=== PATIENT | female | born 1945 | race African-American/Black ===

== ENCOUNTER → 2017-01-20 | Outpatient (RCR) | payer OTHER ==
[~2017-01-20] MED LIST: AMBIEN10 MG PO; CALCIUM 500 ORAL; CELEBREX200 MG PO; DIOVAN80 MG PO; FOLIC ACID1 MG PO; GLUCOPHAGE500 MG PO; HYDROCHLOROTHIA25 MG PO; IBUPROFEN600 MG ORAL; METHOTREXATE2.5 MG PO; NORCO 5-325 TA1 EACH ORAL; PROTONIX40 MG PO; SIMVASTATIN10 MG PO; VICODIN 5-5001 EACH PO
== END | disposition home or self-care (01) ==
LOC: PTY 11:00
DX: M48.06 Spinal stenosis, lumbar region (principal)

== ENCOUNTER 2017-01-25 13:25 | Outpatient (RCR) | payer OTHER | END 2017-02-19 | disposition home or self-care (01) | LOC: PTY 13:25 | DX: M48.06 Spinal stenosis, lumbar region (principal) | CPT/HCPCS: 97110; 97140; G0283 ==

== ENCOUNTER 2017-03-01 11:00 | Outpatient (RCR) | payer OTHER | END 2017-03-22 | disposition home or self-care (01) | LOC: PTY 11:00 | DX: M48.06 Spinal stenosis, lumbar region (principal) ==

== ENCOUNTER 2017-04-02 10:50 | Outpatient (RCR) | payer OTHER | END 2017-04-22 | disposition home or self-care (01) | LOC: PTY 10:50 | DX: M48.06 Spinal stenosis, lumbar region (principal) ==

== ENCOUNTER 2017-09-06 10:00 | Outpatient (RCR) | payer OTHER | END 2017-09-22 | disposition home or self-care (01) | LOC: PTY 10:00 | DX: M70.61 Trochanteric bursitis, right hip (principal) ==

== ENCOUNTER 2017-09-28 15:45 | Outpatient (RCR) | payer OTHER | END 2017-10-20 | disposition home or self-care (01) | LOC: PTY 15:45 | DX: M70.61 Trochanteric bursitis, right hip (principal) ==

== ENCOUNTER 2017-10-25 10:40 | Outpatient (RCR) | payer OTHER | END 2017-11-20 | disposition home or self-care (01) | LOC: PTY 10:40 | DX: M70.61 Trochanteric bursitis, right hip (principal) ==

== ENCOUNTER 2017-12-01 07:50 | Outpatient (RCR) | payer OTHER | END 2017-12-20 | disposition home or self-care (01) | LOC: PTY 07:50 | DX: M70.61 Trochanteric bursitis, right hip (principal); M06.9 Rheumatoid arthritis, unspecified; E11.9 Type 2 diabetes mellitus without complications ==

== ENCOUNTER 2017-12-22 09:57 | Outpatient (RCR) | payer OTHER | END 2018-01-20 | disposition home or self-care (01) | LOC: PTY 09:57 | DX: M70.61 Trochanteric bursitis, right hip (principal) ==

== ENCOUNTER 2018-03-16 08:22 | Emergency (ER) | payer OTHER ==
[~2018-03-16] VITALS: Ht 149.9 cm; Wt 74.4 kg
--- NOTE | 2018-03-16 08:56 | Emergency Room Report ---
History of Present Illness General Chief Complaint: Lower Back Pain or Injury Source: Patient Present Illness HPI 72-year-old female with history of spinal stenosis, sciatica, RA, and hypertension presents with low back pain, sharp, intense, radiating down her left lower extremity, and reports paresthesias in her left anterolateral thigh region as well. She denies urinary symptoms denies traumatic injuries, she reports she's had similar pain in the past before. She denies calf pain, CP, SOB, cough, hemoptysis, syncope, urinary symptoms, weakness, bowel or bladder incontinence, saddle area anesthesia, trauma/falls, and reports she is on prednisone, flexeril, and hydrocodone, but hasn't had much relief. She just went to a chiropractor 2 days ago, had massage therapy and a TENS unit applied for relief but isn't getting much improvement. She thinks she may have pulled a muscle while lifting some luggage but is uncertain. Allergies: Coded Allergies: CEPHALEXIN (Verified Allergy, Unknown, 01/20/17) Uncoded Allergies: KEFLEX (Allergy, Severe, Anaphylaxis, 10/03/12) Patient History Past Medical History: see triage record Last Menstrual Period: NA Reviewed Nursing Documentation: PMH: Agreed; PSxH: Agreed Nursing Documentation-PMH Past Medical History: No History, Except For Hx Cardiac Problems: No - Rheumatoid arthritis Hx Hypertension: Yes Hx Diabetes: Yes Hx Cancer: No Hx Gastrointestinal Problems: No Hx Neurological Problems: No Review of Systems All Other Systems: negative except mentioned in HPI Physical Exam Vital Signs Date Time Temp Pulse Resp B/P (MAP) Pulse Ox O2 Delivery O2 Flow Rate FiO2 03/16/18 08:24 98.1 100 20 172/86 97 Room Air 98.1 Sp02 EP Interpretation: reviewed, normal General Appearance: no apparent distress, alert, non-toxic Head: normocephalic Eyes: bilateral eye normal inspection, bilateral eye PERRL, bilateral eye EOMI ENT: normal ENT inspection, hearing grossly normal, normal pharynx, no angioedema, normal voice, moist mucus membranes Neck: normal inspection, full range of motion, supple, supple/symm/no masses Respiratory: chest non-tender, lungs clear, normal breath sounds, chest symmetrical, palpation of chest normal Cardiovascular #1: normal peripheral pulses, regular rate, rhythm Cardiovascular #2: 2+ radial (R), 2+ radial (L), 2+ dorsalis pedis (R), 2+ dorsalis pedis (L) Gastrointestinal: normal inspection, non tender, soft, no mass, no guarding, no rebound Rectal: deferred Genitourinary: normal inspection, no CVA tenderness Musculoskeletal: back normal, gait/station normal, normal range of motion, non- tender, no calf tenderness, Leanna's Sign negative Neurologic: alert, responsive, 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, motor strength/tone normal, SLR negative - + in LLE, sensory intact, normal gait - slighlty antalgic with patient fovoring the R due to pain in L low back, speech normal Psychiatric: judgement/insight normal, memory normal, mood/affect normal Skin: normal color, no rash, warm/dry, normal turgor Lymphatic: no adenopathy Medical Decision Making Diagnostic Impression: Primary Impression: Low back pain ER Course Patient with signs and symptoms consistent with sciatica versus low back strain , will discharge his x-rays and been unremarkable and patient had good response to Toradol, Flexeril, Lortab, will give prescription for Flexeril refill as well as ibuprofen and gabapentin. Chest X-Ray Diagnostic Results Chest X-Ray Diagnostic Results : Chest X-Ray Ordered: No Other X-Ray Diagnostic Results Other X-Ray Diagnostic Results #1: X-Ray ordered: R hip # of Views/Limited Vs Complete: 3 View Indication: Pain EP Interpretation: Yes Interpretation: no dislocation, no soft tissue swelling, no fractures, nonspecific bowel gas Impression: No acute disease Electronically Signed by: Jason Lewis MD Other X-Ray Diagnostic Results #2: X-Ray ordered: Lumbar spine # of Views/Limited Vs Complete: 2 View Indication: Pain EP Interpretation: Yes Interpretation: no dislocation, no soft tissue swelling, no fractures, nonspecific bowel gas Impression: No acute disease Electronically Signed by: Jason Lewis MD Last Vital Signs Date Time Temp Pulse Resp B/P (MAP) Pulse Ox O2 Delivery O2 Flow Rate FiO2 03/16/18 08:24 98.1 100 20 172/86 97 Room Air 98.1 Disposition: HOME, SELF-CARE Condition: Stable Scripts Ibuprofen* (MOTRIN*) 600 Mg Tablet 600 MG ORAL Q8H PRN for For Pain, #10 TAB 0 Refills Prov: JASON LEWIS M.D 03/16/18 Cyclobenzaprine Hcl* (FLEXERIL*) 10 Mg Tablet 10 MG ORAL THREE TIMES A DAY, #10 TAB Prov: JASON LEWIS M.D 03/16/18 Gabapentin (Neurontin) 300 Mg Capsule 300 MG ORAL THREE TIMES A DAY, #15 CAP 0 Refills Prov: JASON LEWIS M.D 03/16/18 JASON LEWIS M.D Mar 16, 2018 08:56
[2018-03-16] MEDS ORDERED: Ketorolac 60mg Inj IM ONE ×2 (08:57→09:00)
[2018-03-16] MEDS ORDERED: Cyclobenzaprine 10mg Tab ORAL ONE (08:57)
[2018-03-16] MEDS ORDERED: Norco 5mg/325mg tab ORAL ONE (09:00)
[2018-03-16 09:55] VITALS: BP 170/88
[2018-03-16] MEDS ORDERED: IBUPROFEN600 MG ORAL (10:02)
[2018-03-16] MEDS ORDERED: CYCLOBENZAPRINE10 MG ORAL (10:02)
[2018-03-16] MEDS ORDERED: NEURONTIN300 MG ORAL (10:02)
[2018-03-16 10:11] VITALS: BP 170/88
--- NOTE | 2018-03-16 11:03 | Diagnostic Imaging Report ---
Indication: Pain Technique: 3 views of the lumbar spine Comparison: None Findings: There is anterior offset of L4 on L5, without definite pars defect. There is also minimal upper lumbar scoliotic deformity, which could be an artifact of positioning The remainder of the bony alignment is normal. Vertebral body heights are preserved. The disc spaces are preserved. No acute fractures. No dislocations. The bones are osteoporotic There are aortic calcifications. There are also calcifications projected in the region of the right renal sinus. Surgical rebeca are seen in the left inguinal region. Impression: Alignment abnormality at L4-5, probably due to facet degeneration No definite acute process Osteoporotic change Extraspinal findings as described
--- NOTE | 2018-03-16 11:04 | Diagnostic Imaging Report ---
Indication: Left hip pain Technique: 2 views of the left hip Comparison: none Findings: No acute fractures. No dislocations. Joint spaces are preserved. Surgical rebeca are seen in the left inguinal region. There are degenerative changes of the pubic symphysis Impression: No acute process Note, however, that in elderly osteoporotic patients, undisplaced hip and pelvic fractures can easily be occult. Consider cross-sectional imaging for further evaluation if there is high clinical suspicion
== END 2018-03-16 10:13 | disposition home or self-care (01) ==
LOC: EMR 08:52
DX: M54.5 Low back pain (principal); I10 Essential (primary) hypertension; E11.9 Type 2 diabetes mellitus without complications; M06.9 Rheumatoid arthritis, unspecified; Z88.1 Allergy status to other antibiotic agents
CPT/HCPCS: 72020; 73502; 96372; 99284

== ENCOUNTER 2018-03-19 12:43 | Inpatient (IN) | payer OTHER ==
[~2018-03-19] VITALS: Ht 142.2 cm; Wt 72.6 kg
[~2018-03-19 12:43] MED LIST changes: +CYCLOBENZAPRINE10 MG ORAL; +NEURONTIN300 MG ORAL
[2018-03-19 12:51] VITALS: BP_SYST 166; BP_SYST 192; BP_DIAS 80; BP_DIAS 85
[2018-03-19] MEDS ORDERED: Methocarbamol 750mg tab ORAL ONE (13:15)
[2018-03-19] MEDS ORDERED: Morphine Sulfate 4mg/ml Inj (IV USE ONLY) IVP ONE ×2 (13:15→16:15)
[2018-03-19] MEDS ORDERED: Ketorolac 30mg Inj IV ONE (13:15)
[2018-03-19 13:34] LABS: EOSINOPHILS % (AUTO) 0.1 % (0.0-3.0); HEMATOCRIT 38.8 % (37.0-47.0); HEMOGLOBIN 12.7 G/DL (12.0-16.0); LYMPHOCYTES % (AUTO) 19.2 % (20.0-45.0); MEAN CORPUSCULAR VOLUME 81 FL (80-99); MONOCYTES % (AUTO) 2.2 % (1.0-10.0); NEUTROPHILS % (AUTO) 77.5 % (45.0-75.0); PLATELET COUNT 305 K/UL (150-450); RED BLOOD COUNT 4.76 M/UL (4.20-5.40); RED CELL DISTRIBUTION WIDTH 14.5 % (11.6-14.8); WHITE BLOOD COUNT 10.2 K/UL (4.8-10.8)
[2018-03-19 13:38] LABS: APPEARANCE,URINE CLEAR; BILIRUBIN, URINE NEGATIVE (NEGATIVE); COLOR,URINE PALE YELLOW; GLUCOSE, URINE (UA) NEGATIVE (NEGATIVE); KETONES,URINE NEGATIVE (NEGATIVE); LEUKOCYTE ESTERASE ,URINE 2+ (NEGATIVE); NITRITE,URINE NEGATIVE (NEGATIVE); PH,URINE 8 (4.5-8.0); PROTEIN,URINE NEGATIVE (NEGATIVE); UROBILINOGEN,URINE NORMAL MG/DL (0.0-1.0)
[2018-03-19 13:51] LABS: ANION GAP 16 mmol/L (5-15); BLOOD UREA NITROGEN 21 mg/dL (7-18); CARBON DIOXIDE 22 MMOL/L (21-32); CHLORIDE 99 MMOL/L (98-107); POTASSIUM 3.9 MMOL/L (3.5-5.1); SODIUM 137 MMOL/L (136-145)
[2018-03-19 13:55] LABS: ALANINE AMINOTRANSFERASE 22 U/L (12-78); ALBUMIN 3.4 G/DL (3.4-5.0); ALBUMIN/GLOBULIN RATIO 0.7 (1.0-2.7); ALKALINE PHOSPHATASE 72 U/L (46-116); ASPARTATE AMINO TRANSFERASE 15 U/L (15-37); BILIRUBIN,TOTAL 0.3 MG/DL (0.2-1.0)
--- NOTE | 2018-03-19 14:33 | Emergency Room Report ---
History of Present Illness General Chief Complaint: Back Pain-No Injury Source: Patient, EMS (Samuel Roper MD) Present Illness HPI 72-year-old female presents ED complaining of back pain. Patient brought in by EMS. States that she's been having persistent back pain for the last week. 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 Patient states she has been to urgent care and ER several times for this pain since it started. States that medications work temporarily and then the pain comes back. History of spinal stenosis. Pain is sharp, 10 out of 10, radiating down the left leg. Denies any bowel or bladder incontinence. Denies fevers or chills. No other aggravating relieving factors. Denies any other associated symptoms (Samuel Roper MD) Allergies: Coded Allergies: CEPHALEXIN (Verified Allergy, Unknown, 01/20/17) Uncoded Allergies: KEFLEX (Allergy, Severe, Anaphylaxis, 10/03/12) Patient History Past Medical History: DM, HTN Past Surgical History: none Pertinent Family History: none Social History: Denies: smoking, alcohol use, drug use Last Menstrual Period: none Now: No : 2 Para: 2 Immunizations: UTD Reviewed Nursing Documentation: PMH: Agreed; PSxH: Agreed (Samuel Roper MD) Nursing Documentation-PMH Hx Cardiac Problems: No - Rheumatoid arthritis Hx Hypertension: Yes Hx Diabetes: Yes Hx Cancer: No Hx Gastrointestinal Problems: No Hx Neurological Problems: No (Samuel Roper MD) Review of Systems All Other Systems: negative except mentioned in HPI (Samuel Roper MD) Physical Exam Vital Signs Date Time Temp Pulse Resp B/P (MAP) Pulse Ox O2 Delivery O2 Flow Rate FiO2 03/19/18 12:38 98.6 97 18 151/84 99 Room Air 98.6 Sp02 EP Interpretation: reviewed, normal General Appearance: no apparent distress, alert, GCS 15, non-toxic Head: normocephalic, atraumatic Eyes: bilateral eye normal inspection, bilateral eye PERRL ENT: hearing grossly normal, normal pharynx, no angioedema, normal voice Neck: full range of motion, supple/symm/no masses Respiratory: chest non-tender, lungs clear, normal breath sounds, speaking full sentences Cardiovascular #1: regular rate, rhythm, no edema Cardiovascular #2: 2+ carotid (R), 2+ carotid (L), 2+ radial (R), 2+ radial (L) , 2+ dorsalis pedis (R), 2+ dorsalis pedis (L) Gastrointestinal: normal bowel sounds, non tender, soft, non-distended, no guarding, no rebound Rectal: deferred Genitourinary: normal inspection, no CVA tenderness, no vertebral tenderness Musculoskeletal: back normal, gait/station normal, normal range of motion, other - paraspinal lumbar tenderness Neurologic: alert, oriented x3, responsive, motor strength/tone normal, sensory intact, speech normal Psychiatric: judgement/insight normal, memory normal, mood/affect normal, no suicidal/homicidal ideation Reflexes: 3+ bicep (R), 3+ bicep (L), 3+ tricep (R), 3+ tricep (L), 3+ knee (R) , 3+ knee (L) Skin: normal color, no rash, warm/dry, well hydrated Lymphatic: no adenopathy (Samuel Roper MD) Medical Decision Making Diagnostic Impression: Primary Impression: Intractable low back pain Labs Test 03/19/18 13:10 White Blood Count 10.2 K/UL (4.8-10.8) Red Blood Count 4.76 M/UL (4.20-5.40) Hemoglobin 12.7 G/DL (12.0-16.0) Hematocrit 38.8 % (37.0-47.0) Mean Corpuscular Volume 81 FL (80-99) Mean Corpuscular Hemoglobin 26.6 PG (27.0-31.0) Mean Corpuscular Hemoglobin Concent 32.6 G/DL (32.0-36.0) Red Cell Distribution Width 14.5 % (11.6-14.8) Platelet Count 305 K/UL (150-450) Mean Platelet Volume 6.8 FL (6.5-10.1) Neutrophils (%) (Auto) 77.5 % (45.0-75.0) Lymphocytes (%) (Auto) 19.2 % (20.0-45.0) Monocytes (%) (Auto) 2.2 % (1.0-10.0) Eosinophils (%) (Auto) 0.1 % (0.0-3.0) Basophils (%) (Auto) 1.0 % (0.0-2.0) Urine Color Pale yellow Urine Appearance Clear Urine pH 8 (4.5-8.0) Urine Specific [place] 1.010 (1.005-1.035) Urine Protein Negative (NEGATIVE) Urine Glucose (UA) Negative (NEGATIVE) Urine Ketones Negative (NEGATIVE) Urine Occult Blood Negative (NEGATIVE) Urine Nitrite Negative (NEGATIVE) Urine Bilirubin Negative (NEGATIVE) Urine Urobilinogen Normal MG/DL (0.0-1.0) Urine Leukocyte Esterase 2+ (NEGATIVE) Urine RBC 0-2 /HPF (0 - 2) Urine WBC 2-4 /HPF (0 - 2) Urine Squamous Epithelial Cells Few /LPF (NONE/OCC) Urine Bacteria Occasional /HPF (NONE) Sodium Level 137 MMOL/L (136-145) Potassium Level 3.9 MMOL/L (3.5-5.1) Chloride Level 99 MMOL/L (98-107) Carbon Dioxide Level 22 MMOL/L (21-32) Anion Gap 16 mmol/L (5-15) Blood Urea Nitrogen 21 mg/dL (7-18) Creatinine 1.0 MG/DL (0.55-1.30) Estimat Glomerular Filtration Rate mL/min (>60) Glucose Level 149 MG/DL (74-106) Calcium Level 10.0 MG/DL (8.5-10.1) Total Bilirubin 0.3 MG/DL (0.2-1.0) Aspartate Amino Transf (AST/SGOT) 15 U/L (15-37) Alanine Aminotransferase (ALT/SGPT) 22 U/L (12-78) Alkaline Phosphatase 72 U/L (46-116) Total Protein 8.5 G/DL (6.4-8.2) Albumin 3.4 G/DL (3.4-5.0) Globulin 5.1 g/dL Albumin/Globulin Ratio 0.7 (1.0-2.7) (Samuel Roper MD) ER Course Please refer to the initial note for the history exam and presentation patient had MRI obtained which reveals L4-L5 broad-based disc bulge, there is also moderate to severe central canal stenosis and narrowing On reevaluation patient does not show any signs of cauda equina type pathology has no signs of urinary or bowel incontinence Pain is the significant complain patient is provided with steroids and further pain medication at this time As the patient still feels uncomfortable with standing Has intractable pain Required admission [facility] was contacted and they request admission at this facility as there is no capacity at [facility] hospitalist contacted and patient admitted for further care Labs Test 03/19/18 13:10 White Blood Count 10.2 K/UL (4.8-10.8) Red Blood Count 4.76 M/UL (4.20-5.40) Hemoglobin 12.7 G/DL (12.0-16.0) Hematocrit 38.8 % (37.0-47.0) Mean Corpuscular Volume 81 FL (80-99) Mean Corpuscular Hemoglobin 26.6 PG (27.0-31.0) Mean Corpuscular Hemoglobin Concent 32.6 G/DL (32.0-36.0) Red Cell Distribution Width 14.5 % (11.6-14.8) Platelet Count 305 K/UL (150-450) Mean Platelet Volume 6.8 FL (6.5-10.1) Neutrophils (%) (Auto) 77.5 % (45.0-75.0) Lymphocytes (%) (Auto) 19.2 % (20.0-45.0) Monocytes (%) (Auto) 2.2 % (1.0-10.0) Eosinophils (%) (Auto) 0.1 % (0.0-3.0) Basophils (%) (Auto) 1.0 % (0.0-2.0) Urine Color Pale yellow Urine Appearance Clear Urine pH 8 (4.5-8.0) Urine Specific [place] 1.010 (1.005-1.035) Urine Protein Negative (NEGATIVE) Urine Glucose (UA) Negative (NEGATIVE) Urine Ketones Negative (NEGATIVE) Urine Occult Blood Negative (NEGATIVE) Urine Nitrite Negative (NEGATIVE) Urine Bilirubin Negative (NEGATIVE) Urine Urobilinogen Normal MG/DL (0.0-1.0) Urine Leukocyte Esterase 2+ (NEGATIVE) Urine RBC 0-2 /HPF (0 - 2) Urine WBC 2-4 /HPF (0 - 2) Urine Squamous Epithelial Cells Few /LPF (NONE/OCC) Urine Bacteria Occasional /HPF (NONE) Sodium Level 137 MMOL/L (136-145) Potassium Level 3.9 MMOL/L (3.5-5.1) Chloride Level 99 MMOL/L (98-107) Carbon Dioxide Level 22 MMOL/L (21-32) Anion Gap 16 mmol/L (5-15) Blood Urea Nitrogen 21 mg/dL (7-18) Creatinine 1.0 MG/DL (0.55-1.30) Estimat Glomerular Filtration Rate mL/min (>60) Glucose Level 149 MG/DL (74-106) Calcium Level 10.0 MG/DL (8.5-10.1) Total Bilirubin 0.3 MG/DL (0.2-1.0) Aspartate Amino Transf (AST/SGOT) 15 U/L (15-37) Alanine Aminotransferase (ALT/SGPT) 22 U/L (12-78) Alkaline Phosphatase 72 U/L (46-116) Total Protein 8.5 G/DL (6.4-8.2) Albumin 3.4 G/DL (3.4-5.0) Globulin 5.1 g/dL Albumin/Globulin Ratio 0.7 (1.0-2.7) (Momo Garcia DO) CT/MRI/US Diagnostic Results CT/MRI/US Diagnostic Results : Impression L-spine MRIIMPRESSION: 1. Grade 1 anterolisthesis of L4 on L5. No acute fracture. 2. L4-5 broad-based disc bulge. Facet arthropathy and ligamentum flavum thickening. This is resulting in moderate to severe central canal narrowing. Moderate to severe bilateral neural foraminal narrowing. 3. Gallstones. (Momo Garcia DO) Last Vital Signs Date Time Temp Pulse Resp B/P (MAP) Pulse Ox O2 Delivery O2 Flow Rate FiO2 03/19/18 13:47 98.6 03/19/18 12:51 91 27 166/80 99 Room Air Status: improved (Samuel Roper MD) Status: improved (Momo Garcia DO) Disposition: ADMITTED INPATIENT Condition: Serious Samuel Roper MD Mar 19, 2018 14:33 Momo Garcia DO Mar 19, 2018 17:26
[2018-03-19 16:06] VITALS: BP 154/69
[2018-03-19] MEDS ORDERED: Solu-MEDROL 125mg Inj IVP ONE (16:15)
--- NOTE | 2018-03-19 16:16 | Diagnostic Imaging Report ---
EXAM: MR Lumbar Spine Without Intravenous Contrast CLINICAL HISTORY: BK PAIN TECHNIQUE: Magnetic resonance images of the lumbar spine without intravenous contrast in multiple planes. COMPARISON: No relevant prior studies available. FINDINGS: Vertebrae: Grade 1 anterolisthesis of L4 on L5. No acute fracture. Spinal cord: Unremarkable. Normal signal. Soft tissues: Unremarkable. Gallbladder and bile ducts: Gallstones. DISCS/SPINAL CANAL/NEURAL FORAMINA: L1-L2: Unremarkable. No significant disc disease. No stenosis. L2-L3: L2-3 mild broad-based disc bulge with mild bilateral neural foraminal narrowing. L3-L4: L3-4 broad-based disc bulge. Mild left neural foraminal narrowing. Moderate right neural foraminal narrowing. L4-L5: L4-5 broad-based disc bulge. Facet arthropathy and ligamentum flavum thickening. This is resulting in moderate to severe central canal narrowing. Moderate to severe bilateral neural foraminal narrowing. L5-S1: L5-S1 mild central disc protrusion with mild canal narrowing. Facet arthropathy. Mild bilateral neural foraminal narrowing. IMPRESSION: 1. Grade 1 anterolisthesis of L4 on L5. No acute fracture. 2. L4-5 broad-based disc bulge. Facet arthropathy and ligamentum flavum thickening. This is resulting in moderate to severe central canal narrowing. Moderate to severe bilateral neural foraminal narrowing. 3. Gallstones.
[2018-03-19 17:01] VITALS: BP 142/73
[2018-03-19] MEDS ORDERED: LOSARTAN-HCTZ1 EAC2 ORAL (17:23)
[2018-03-19] MEDS ORDERED: NORCO 5-325 TA1 EACH ORAL (17:25)
[2018-03-19] MEDS ORDERED: ZOLPIDEM TARTRAT5 MG ORAL (17:45)
[2018-03-19] MEDS ORDERED: FISH OIL 1,0001 EAC1 ORAL (17:45)
[2018-03-19] MEDS ORDERED: ZOCOR20 M1 ORAL (17:45)
[2018-03-19] MEDS ORDERED: ESTRACE1 MG ORAL (17:45)
[2018-03-19] MEDS ORDERED: CALCIUM 500 +1 EAC3 PO (17:45)
[2018-03-19] MEDS ORDERED: MONTELUKAST SOD10 MG ORAL (17:45)
[2018-03-19] MEDS ORDERED: STOOL SOFTENER50 M1 PO (17:48)
[2018-03-19] MEDS ORDERED: PREDNISONE10 MG ORAL (17:48)
[2018-03-19] MEDS ORDERED: VALACYCLOVIR500 MG ORAL (17:49)
[2018-03-19] MEDS ORDERED: XELJANZ5 MG PO (17:50)
[2018-03-19] MEDS ORDERED: FERROUS SULFAT325 MG ORAL (17:53)
[2018-03-19] MEDS ORDERED: GABAPENTIN300 MG ORAL (17:59)
[2018-03-19] MEDS ORDERED: IBUPROFEN600 MG ORAL (18:00)
[2018-03-19] MEDS ORDERED: Morphine Sulfate 2mg/ml Inj(IV/IM USE ONLY) IVP PRN (19:45)
--- NOTE | 2018-03-19 19:47 | History & Physical ---
History and Physical History & Physicial #[id number] intractable back pain dm hgn gerd RA on mtx Feli Betancourt DO Mar 19, 2018 19:47
[2018-03-19 20:00] VITALS: BP 138/71
[2018-03-19] MEDS ORDERED: Montelukast 10mg tablet ORAL SCH (21:00)
[2018-03-19] MEDS ORDERED: NovoLOG Insulin Flexpen SUBQ SCH (21:00)
[2018-03-19] MEDS ORDERED: PREDNISONE20 MG ORAL (21:12)
[2018-03-19] MEDS ORDERED: MORPHINE 22 MG/1 ML IV (21:12)
[2018-03-19] MEDS ORDERED: NOVOLOG100 UNITS1 SQ (21:13)
[2018-03-19] MEDS ORDERED: TIZANIDINE HCL4 MG ORAL (21:13)
[2018-03-19] MEDS ORDERED: metFORMIN 500mg tab ORAL SCH (21:15)
--- NOTE | 2018-03-20 01:15 | History and Physical Report ---
DATE OF ADMISSION: 03/19/2018 REASON FOR ADMISSION: Intractable back pain. HISTORY OF PRESENT ILLNESS: This is an elderly female, who states on 03/12/2018 she bent over, had severe back pain with radiation of pain and numbness down her left leg. Initially went to a chiropractor with a TENS unit, had some manipulation with some improvement, but has quickly returned. She went to the [facility]. She was given Flexeril, steroids, and Neurontin as well as some pain medications. Continued to have persist until today. She was unable to tolerate the pain any further, came to the emergency room, had an MRI, which demonstrates L2-L3 mild broad based disc bulge with bilateral neural foraminal narrowing, also seen at L3-L4 with the same findings, L4-L5 with facet arthropathy ligamentum thickening and moderate to severe central canal narrowing and moderate bilateral severe neural foraminal narrowing as well and finally at L5-S1 with mild canal narrowing facet arthropathy and mild bilateral neural foraminal narrowing. She was also given IV Solu-Medrol here, some Robaxin, IV morphine, still with severe pain. She has no weakness, but is unable to ambulate safely without concerns for falling, mostly due to the pain. She has not lost her bowel or bladder function and denies any chest pain, nausea, vomiting, diarrhea, or fevers. PAST MEDICAL HISTORY: Diabetes, rheumatoid arthritis, hypertension, and gastroesophageal reflux disease. PAST SURGICAL HISTORY: Negative. MEDICATIONS: Pre-hospital and present medications are reviewed, reconciled, documented in electronic medical record by dose, frequency, and route. ALLERGIES: None. SOCIAL HISTORY: Negative for tobacco, alcohol, or drugs. FAMILY HISTORY: Noncontributory. PHYSICAL EXAMINATION: GENERAL: At the time my exam, she is alert. She is oriented. She is in no acute respiratory distress. She is afebrile. VITAL SIGNS: Her pulse is 74, blood pressure 142/73, she is 98% on room air. HEENT: She is normocephalic and atraumatic. Oropharynx is moist. Nasal mucosa moist. NECK: Supple without lymphadenopathy. LUNGS: Decreased at bases. No wheeze present. HEART: Regular rate and rhythm without murmur. ABDOMEN: Soft and nontender. Positive bowel sounds. EXTREMITIES: With no edema. She has severe pain in the lumbar region along with sciatic notch pain, hip pain on the left and pain of the left quad muscle. She has no weakness, but has difficulty with pain in terms of dorsiflexion and plantar flexion. LABORATORY AND DIAGNOSTIC DATA: Her laboratory values include a white count of 10.2, hemoglobin 12.7, and platelets are 305. Her sodium is 137, potassium 3.9, chloride ____, bicarbonate 22, BUN 21, creatinine 1, and glucose is 149. Her urinalysis is 2+ positive for leukocyte esterase with few squamous epithelial cells. ASSESSMENT: 1. Intractable back pain with significant central canal stenosis as well as neural foraminal narrowing at multiple levels as noted on MRI reported above. 2. Diabetes. 3. Rheumatoid arthritis. 4. Hypertension. 5. Gastroesophageal reflux disease. 6. Possible urinary tract infection. PLAN: For the patient, I have contacted her primary care physician, ____ as well as [facility] for transfer, as she does need evaluation from a Neurosurgeon. Home medications have been reviewed, reconciled and ordered. Accu-Chek before meals and at bedtime with insulin sliding scale. Gentle IV fluids. Pain control with IV morphine. Zanaflex as well as steroids will be continued at this time. Holding all antiplatelets, in case the patient does require any surgical intervention and we will continue to follow the patient until she is successfully transferred to [facility]. Feli Garcia D.O. DR: MARY JOB#: [id number] CC:
[2018-03-20] MEDS ORDERED: Hyzaar 12.5mg/50mg tab ORAL SCH (09:00)
[2018-03-20] MEDS ORDERED: valACYclovir HCL 500mg tab ORAL SCH (09:00)
[2018-03-20] MEDS ORDERED: metFORMIN 500mg tab ORAL SCH (09:00)
--- NOTE | 2018-03-22 10:30 | Discharge Summary ---
Discharge Summary Discharge Summary _ DATE OF ADMISSION: 03/19/2018 DATE OF DISCHARGE: 03/19/2018 REASON FOR ADMISSION: 72 years old female with past medical history of diabetes mellitus, rheumatoid arthritis, hypertension, gastroesophageal reflux disease, presented with intractable back pain. She undergone treatment with chiropractor , after initial episode of back pain , with TENS unit and some manipulation . It resulted in small improvement , but pain quickly returned. Patient went to [facility], where she was given Flexeril, steroids, and Neurontin . Patient continued to have persistent pain. MRI of lumbar spine done in ED, revealed Grade 1 anterolisthesis of L4 on L5. No acute fracture. L4-5 broad-based disc bulge. Facet arthropathy and ligamentum flavum thickening , resulting in moderate to severe central canal narrowing. Moderate to severe bilateral neural foraminal narrowing. Patient did not lose her bowel or bladder function. She denied chest pain ,shortness of breath, nausea ,vomiting ,diarrhea or fever . She denied any focal weakness. Patient admitted with intractable back pain with significant central and foraminal stenosis. HOSPITAL COURSE: Patient admitted. Attending physician contacted patient' s primary care physician along with [facility] transfer center , since patient will need evaluation from neurosurgeon. Pain management provided with combination of NSAID/Toradol, muscle relaxant and opioid. Steroid times one given. Blood sugar was managed with sliding scale of insulin. Patient started on gentle IV fluids. Patient was able to be transferred to [facility] same day for further management FINAL DIAGNOSES: Intractable back pain with significant central canal stenosis and neural foraminal narrowing at multiply levels. Diabetes mellitus Rheumatoid arthritis Hypertension Gastroesophageal reflux disease DISCHARGE MEDICATIONS: See Medication Reconciliation list. DISCHARGE INSTRUCTIONS: Patient was transferred to [facility] for neurosurgery evaluation and further management I have been assigned to dictate discharge summary for this account. I was not involved in the patient's management. Alicia Garcia NP Mar 22, 2018 10:30
== END 2018-03-19 22:50 | disposition short-term general hospital (02) | DRG 552 ==
LOC: EDBD 12:43 → EMR 15:05 → EDBEDREQ 16:50 → 4E 17:08
DX: M48.061 Spinal stenosis, lumbar region without neurogenic claudication (principal); M48.07 Spinal stenosis, lumbosacral region; E11.9 Type 2 diabetes mellitus without complications; M06.9 Rheumatoid arthritis, unspecified; I10 Essential (primary) hypertension; K21.9 Gastro-esophageal reflux disease without esophagitis
CPT/HCPCS: 36415; 72148; 80053; 81003; 82962; 85025; 87081; 99285; J1815

== ENCOUNTER 2018-06-25 19:03 | Emergency (ER) | payer OTHER ==
[~2018-06-25] VITALS: Ht 149.9 cm; Wt 73.9 kg
[~2018-06-25 19:03] MED LIST changes: +CALCIUM 500 +1 EAC3 PO; +ESTRACE1 MG ORAL; +FERROUS SULFAT325 MG ORAL; +FISH OIL 1,0001 EAC1 ORAL; +GABAPENTIN300 MG ORAL; +LOSARTAN-HCTZ1 EAC2 ORAL; +MONTELUKAST SOD10 MG ORAL; +MORPHINE 22 MG/1 ML IV; +NOVOLOG100 UNITS1 SQ; +PREDNISONE10 MG ORAL; +PREDNISONE20 MG ORAL; +STOOL SOFTENER50 M1 PO; +TIZANIDINE HCL4 MG ORAL; +VALACYCLOVIR500 MG ORAL; +XELJANZ5 MG PO; +ZOCOR20 M1 ORAL; +ZOLPIDEM TARTRAT5 MG ORAL
[2018-06-25 19:30] VITALS: BP 160/83
--- NOTE | 2018-06-25 19:45 | Emergency Room Report ---
History of Present Illness General Chief Complaint: Hypertension Source: Patient Present Illness HPI The patient is a 73-year-old female who presented after increased headache and dizziness. The patient was noted to have the recent decreased sleep as well as change in her diet. She denies any fever. She reports having increased generalized worsening headache. She denies any vomiting. She had recently been having increased demands through evangelical group which are preventing her from sleeping in the mornings. The patient takes medications for rheumatoid arthritis and had recently started taking hyaluronic acid chondroitin and MSM- containing supplement Allergies: Coded Allergies: CEPHALEXIN (Verified Allergy, Intermediate, 03/19/18) Patient History Past Medical History: see triage record Last Menstrual Period: 1971 Reviewed Nursing Documentation: PMH: Agreed; PSxH: Agreed Nursing Documentation-PMH Hx Cardiac Problems: Yes Hx Hypertension: Yes Hx Diabetes: Yes Hx Cancer: No Hx Gastrointestinal Problems: No Hx Neurological Problems: Yes - rheumatoid arthritis, kidney stones Review of Systems All Other Systems: negative except mentioned in HPI Physical Exam Vital Signs Date Time Temp Pulse Resp B/P (MAP) Pulse Ox O2 Delivery O2 Flow Rate FiO2 06/25/18 19:11 98.8 76 16 173/85 96 Room Air Sp02 EP Interpretation: reviewed, normal General Appearance: normal inspection, well appearing, no apparent distress, alert, GCS 15, Chronically Ill Head: atraumatic ENT: normal ENT inspection, hearing grossly normal, normal voice Neck: normal inspection, full range of motion, supple, no bony tend Respiratory: normal inspection, lungs clear, normal breath sounds, no respiratory distress, no retraction, no wheezing Cardiovascular #1: regular rate, rhythm, no edema Gastrointestinal: normal inspection, normal bowel sounds, non tender, soft, no guarding, no hernia Genitourinary: no CVA tenderness Musculoskeletal: normal inspection, back normal, decreased range of motion, other - slight joint deformity Neurologic: normal inspection, alert, oriented x3, responsive, superintendent sales III-XII nml as tested, speech normal Psychiatric: normal inspection, judgement/insight normal, mood/affect normal Skin: normal inspection, normal color, no rash Medical Decision Making Diagnostic Impression: Primary Impression: Hypertension Additional Impression: Headache ER Course Patient presented for dizziness. Differential diagnosis included but not limited to subarachnoid hemorrhage, hypertensive crisis, urinary tract infection, anemia, arrhythmia, abdominal aortic aneurysm, CVA, subarachnoid hemorrhage, benign positional vertigo.Because of complexity of patient's case laboratory testing and imaging studies were ordered.CT the head read by radiology showed no evidence of acute intracranial hemorrhage. The patient was observed in the respiratory with spontaneous improvement in blood pressure. The patient was advised to return if she began having worsening condition or other concerns. The patient was advised to return to her usual sleep schedule as she had recently been sleeping less than 3 hours a day the do to prayer meetings in the morning. 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 The time of discharge patient reported having minimal headache without medications. She reports feeling better and wanted to go home. Labs Test 06/25/18 19:45 White Blood Count 9.0 K/UL (4.8-10.8) Red Blood Count 4.18 M/UL (4.20-5.40) Hemoglobin 11.7 G/DL (12.0-16.0) Hematocrit 35.8 % (37.0-47.0) Mean Corpuscular Volume 86 FL (80-99) Mean Corpuscular Hemoglobin 27.9 PG (27.0-31.0) Mean Corpuscular Hemoglobin Concent 32.7 G/DL (32.0-36.0) Red Cell Distribution Width 14.8 % (11.6-14.8) Platelet Count 287 K/UL (150-450) Mean Platelet Volume 6.1 FL (6.5-10.1) Neutrophils (%) (Auto) 52.2 % (45.0-75.0) Lymphocytes (%) (Auto) 41.2 % (20.0-45.0) Monocytes (%) (Auto) 3.8 % (1.0-10.0) Eosinophils (%) (Auto) 1.0 % (0.0-3.0) Basophils (%) (Auto) 1.8 % (0.0-2.0) Prothrombin Time 10.3 SEC (9.30-11.50) Prothromb Time International Ratio 1.0 (0.9-1.1) Activated Partial Thromboplast Time 26 SEC (23-33) Urine Color Pale yellow Urine Appearance Clear Urine pH 7 (4.5-8.0) Urine Specific [place] 1.005 (1.005-1.035) Urine Protein Negative (NEGATIVE) Urine Glucose (UA) Negative (NEGATIVE) Urine Ketones Negative (NEGATIVE) Urine Blood Negative (NEGATIVE) Urine Nitrite Negative (NEGATIVE) Urine Bilirubin Negative (NEGATIVE) Urine Urobilinogen Normal MG/DL (0.0-1.0) Urine Leukocyte Esterase Negative (NEGATIVE) Sodium Level 137 MMOL/L (136-145) Potassium Level 4.0 MMOL/L (3.5-5.1) Chloride Level 101 MMOL/L (98-107) Carbon Dioxide Level 29 MMOL/L (21-32) Anion Gap 7 mmol/L (5-15) Blood Urea Nitrogen 14 mg/dL (7-18) Creatinine 0.8 MG/DL (0.55-1.30) Estimat Glomerular Filtration Rate mL/min (>60) Glucose Level 91 MG/DL (74-106) Calcium Level 9.7 MG/DL (8.5-10.1) Total Bilirubin 0.3 MG/DL (0.2-1.0) Aspartate Amino Transf (AST/SGOT) 21 U/L (15-37) Alanine Aminotransferase (ALT/SGPT) 24 U/L (12-78) Alkaline Phosphatase 71 U/L (46-116) Troponin I 0.000 ng/mL (0.000-0.056) Total Protein 8.8 G/DL (6.4-8.2) Albumin 3.3 G/DL (3.4-5.0) Globulin 5.5 g/dL Albumin/Globulin Ratio 0.6 (1.0-2.7) EKG Diagnostic Results Rate: normal - 76 Rhythm: NSR ST Segments: no acute changes Last Vital Signs Date Time Temp Pulse Resp B/P (MAP) Pulse Ox O2 Delivery O2 Flow Rate FiO2 06/25/18 19:36 74 16 Room Air 06/25/18 19:30 98.8 160/83 96 Status: improved Disposition: HOME, SELF-CARE Condition: Stable Referrals: PATRICIA DIAZ (PCP) Francisco Mitchell MD Jun 25, 2018 19:45
[2018-06-25 20:05] LABS: BASOPHILS % (AUTO) 1.8 % (0.0-2.0); HEMATOCRIT 35.8 % (37.0-47.0); HEMOGLOBIN 11.7 G/DL (12.0-16.0); LYMPHOCYTES % (AUTO) 41.2 % (20.0-45.0); MEAN CORPUSCULAR VOLUME 86 FL (80-99); MONOCYTES % (AUTO) 3.8 % (1.0-10.0); NEUTROPHILS % (AUTO) 52.2 % (45.0-75.0); PLATELET COUNT 287 K/UL (150-450); RED BLOOD COUNT 4.18 M/UL (4.20-5.40); RED CELL DISTRIBUTION WIDTH 14.8 % (11.6-14.8)
[2018-06-25 20:25] LABS: APPEARANCE,URINE CLEAR; BILIRUBIN, URINE NEGATIVE (NEGATIVE); COLOR,URINE PALE YELLOW; GLUCOSE, URINE (UA) NEGATIVE (NEGATIVE); KETONES,URINE NEGATIVE (NEGATIVE); LEUKOCYTE ESTERASE ,URINE NEGATIVE (NEGATIVE); NITRITE,URINE NEGATIVE (NEGATIVE); PH,URINE 7 (4.5-8.0); PROTEIN,URINE NEGATIVE (NEGATIVE); UROBILINOGEN,URINE NORMAL MG/DL (0.0-1.0)
[2018-06-25 20:35] LABS: ANION GAP 7 mmol/L (5-15); BLOOD UREA NITROGEN 14 mg/dL (7-18); CALCIUM 9.7 MG/DL (8.5-10.1); CARBON DIOXIDE 29 MMOL/L (21-32); CHLORIDE 101 MMOL/L (98-107); CREATININE 0.8 MG/DL (0.55-1.30); SODIUM 137 MMOL/L (136-145)
[2018-06-25 20:39] LABS: ALANINE AMINOTRANSFERASE 24 U/L (12-78); ALBUMIN 3.3 G/DL (3.4-5.0); ALBUMIN/GLOBULIN RATIO 0.6 (1.0-2.7); ALKALINE PHOSPHATASE 71 U/L (46-116); ASPARTATE AMINO TRANSFERASE 21 U/L (15-37); BILIRUBIN,TOTAL 0.3 MG/DL (0.2-1.0)
[2018-06-25 20:40] VITALS: BP 168/78
--- NOTE | 2018-06-25 21:03 | Diagnostic Imaging Report ---
EXAM: CT Head Without Intravenous Contrast CLINICAL HISTORY: PAIN TECHNIQUE: Axial computed tomography images of the head/brain without intravenous contrast. CTDI is 70.38 mGy and DLP is 1256 mGy-cm. One or more of the following dose reduction techniques were used: automated exposure control, adjustment of the mA and/or kV according to patient size, use of iterative reconstruction technique. COMPARISON: No relevant prior studies available. FINDINGS: Brain: No hemorrhage. No edema. Ventricles: No ventriculomegaly. Bones/joints: No acute fracture. Soft tissues: Unremarkable. Sinuses: No acute sinusitis. Mastoid air cells: No mastoid effusion. IMPRESSION: No acute intracranial process.
[2018-06-25 21:15] VITALS: BP 160/68
[2018-06-25 21:30] VITALS: BP 160/68
== END 2018-06-25 21:30 | disposition home or self-care (01) ==
LOC: EMR 19:32
DX: I10 Essential (primary) hypertension (principal); R51 Headache; R42 Dizziness and giddiness; E11.9 Type 2 diabetes mellitus without complications; M06.9 Rheumatoid arthritis, unspecified
CPT/HCPCS: 36415; 70450; 80053; 81003; 84484; 85025; 85610; 85730; 93005; 99284